=== PATIENT | female | born 2000 | race Caucasian/White ===

== ENCOUNTER 2020-05-19 01:00 | Inpatient (IN) | payer BC, OTHER ==
[~2020-05-19] VITALS: Ht 170.2 cm; Wt 69.0 kg
[2020-05-19] MEDS ORDERED: LO-ZUMANDIMINE1 EACH PO (01:21)
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
--- NOTE | 2020-05-19 05:23 | NUR ---
pt ARRIVES FROM SURGERY IN HOSPITAL BED WITH SCHOOL BUS DRIVER/MECHANIC NEERAJ. VSS. pt DENIES ANY PAIN CSM INTACT BUE, BLE. SOME NAUSEA WITH AMBUALTION TO RESTROOM FOR VOID, SBA, GAIT UNSTEADY. ORAL CARE COMPLETE. ASSESSMENT COMPLETE. ORIENTATION TO ROOM PROVIDED. pt ASSISTED TO USE TELEPHONE TO CALL FATHER. RESTING IN ROOM. SCDS ON. IVF INFUSING WNL. CALL LIGHT IN REACH.
--- NOTE | 2020-05-19 06:00 | NUR ---
IN pt ROOM FOR POST OP VS, VSS. DENIES PAIN, NUMBNESS IN RIGHT HAND. IV ANTIBIOTIC INFUSING WNL ORDERED. SCHEDULED PAIN MEDICATION ADMINISTERED. ICE WATER PROVIDED. NO ADDITIONAL REQUESTS. CALL LIGHT IN REACH.
--- NOTE | 2020-05-19 06:40 | NUR ---
NEW ADMIT AFTER SURGERY ON RIGHT WRIST FROM LACERATION THIS SHIFT. 1PA TO RESTROOM FOR VOIDS, UNSTEADY GAIT. SCDS ON. VSS. DRESSING CDI. ABRASIONS BILATERALLY LEGS FROM FALL WITH ANTIBIOTIC OINTMENT, BANDAIDS. IVF INFUSING WNL ORDERED.
--- NOTE | 2020-05-19 08:10 | NUR ---
PATIENT SITTING UP IN BED. MOM IN ROOM. WHITE BOARD UPDATED. CALL LIGHT WITHIN REACH. NO OTHER NEEDS AT THIS TIME
--- NOTE | 2020-05-19 09:32 | NUR ---
PATIENT RESTING IN BED. MOM AND RN IN ROOM. VITAL SIGNS AND I&O DONE. CALL LIGHT WITHIN REACH. NO OTHER NEEDS AT THIS TIME
--- NOTE | 2020-05-19 09:40 | NUR ---
PT SITTING UP IN BED AWAKE, DENIES NAUSEA. DENIES PAIN OF RIGHT WRIST BUT REPORTS "THROBBING". STATES IT FEELS LIKE IT'S "WAKING UP". REPORTS RIGHT PINKY THE MOST NUMB OUT OF ALL THE FINGERS BUT STATES ALL FINGERS OF RIGHT HAND ARE FEELING SOME LEVEL OF SENSATION. CAP REFILL OF ALL FINGERS 3-4 SEC, WARM AND PINK, GOOD MOVEMENT NOTED. DRESSING CDI. PT ATE SMALL BREAKFAST THIS MORNING. AMB WELL INDEPENDENTLY TO RESTROOM, GOOD URINE OUTPUT. LARGE ABRASIONS NOTED TO BILATERAL SHINS AND KNEES. CLEANED WITH WOUND CLEANSER AND APPLIED ABD PADS TO PROTECT THEM FROM SCD'S. MOTHER AT BEDSIDE. IV INFUSING WNL.
[2020-05-19] MEDS ORDERED: DROSPIRENONE-E1 EAC1 PO (10:41)
--- NOTE | 2020-05-19 10:44 | NUR ---
Medications reconciled
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
[2020-05-19] MEDS ORDERED: MOTRIN IB200 M1 PO (12:14)
[2020-05-19] MEDS ORDERED: TYLENOL EXTRA500 MG PO (12:14)
[2020-05-19] MEDS ORDERED: OXYCODONE HCL5 MG PO (12:15)
== END 2020-05-19 12:55 | disposition home or self-care (01) | DRG 580 ==
LOC: ED 01:00 → MS 01:02 → ED 01:02 → MS 04:20
PROVIDERS: ADMIT Surgery
PROC: 0LQ50ZZ Repair Right Lower Arm and Wrist Tendon, Open Approach (ICD-10-PCS; 2020-05-19)
PROC: 01Q40ZZ Repair Ulnar Nerve, Open Approach (ICD-10-PCS; 2020-05-19)
PROC: 03Q90ZZ Repair Right Ulnar Artery, Open Approach (ICD-10-PCS; principal; 2020-05-19 02:17)
DX: S61.511A Laceration without foreign body of right wrist, initial encounter (principal); S66.821A Laceration of other specified muscles, fascia and tendons at wrist and hand level, right hand, initial encounter; F10.129 Alcohol abuse with intoxication, unspecified; Z20.828 Contact with and (suspected) exposure to other viral communicable diseases; W25.XXXA Contact with sharp glass, initial encounter; Y92.009 Unspecified place in unspecified non-institutional (private) residence as the place of occurrence of the external cause; Z79.3 Long term (current) use of hormonal contraceptives
CPT/HCPCS: 00400; 36415; 85025; 90471; 90715; 96374; 99284-25; C9803; G0480; J0690; J1100; J1885; J2001; J2405; J2704; J3010; J7121; U0002